=== PATIENT | female | born 1985 | race American Indian/Alaskan Native ===

== ENCOUNTER 2020-04-24 00:36 | Emergency (ER) | payer SELFPAY ==
[2020-04-24] MEDS ORDERED: ASPIRIN 325 MG TAB PO ONE (00:42)
[2020-04-24 01:10] LABS: Basophils # (Auto) 0.1 K/mm3 (0.0-0.1); Basophils % (Auto) 1.3 % (0.0-1.8); Eosinophils # (Auto) 0.1 K/mm3 (0.0-0.4); Eosinophils % (Auto) 0.9 % (0.0-4.3); Hematocrit 32.6 % (30.3-42.9); Hemoglobin 10.3 gm/dl (10.1-14.3); Lymphocytes # (Auto) 2.6 K/mm3 (1.2-5.4); Lymphocytes % (Auto) 36.5 % (13.4-35.0); Mean Corpuscular HGB Conc 32 % (30-34); Mean Corpuscular Volume 72 fl (79-97); Monocytes # (Auto) 0.4 K/mm3 (0.0-0.8); Monocytes % (Auto) 5.1 % (0.0-7.3); Platelet Count 264 K/mm3 (140-440); Red Blood Count 4.54 M/mm3 (3.65-5.03); Red Cell Distribution Width 18.1 % (13.2-15.2)
--- NOTE | 2020-04-24 01:16 | Emergency Department Report ---
ED General Adult HPI - General Chief complaint: Hyperglycemia Stated complaint: ELEVATED BLOOD SUGAR, CHEST PAIN PUI?: No Time Seen by Provider: 04/24/20 01:05 Source: patient Mode of arrival: Ambulatory Limitations: No Limitations - History of Present Illness Initial comments: Patient is a 35-year-old female that presents emergency room with complaints of elevated blood sugar and chest pain. Patient states that she was seen here on April 22 and given metformin. Patient's new diagnosis of diabetes on April 22. Patient states her chest pain started 5 days ago. Patient states she was already evaluated here for chest pain. Patient states the chest pain is the same. Patient states the chest pain is a pressure and is a 4 out of 10. Patient states the chest pain is unchanged by exertion. Patient states the chest pain is worse with movement and palpation. Patient states the chest pain is better with rest and remaining still. Patient denies shortness of breath. Patient states that ever since she started the metformin her increased urination has slowed down. Patient states she had came in because her blood sugar read greater than 500 and it worried her. Patient denies vomiting. Patient that she has occasional nausea. Patient states the nausea started when she started the metformin. Patient denies recent travel. Patient denies recent international travel. Patient denies exposure to the novel coronavirus. Patient denies sick contacts. Patient denies fever and chills. Patient denies cough. Patient denies diarrhea. Patient denies coming in contact with anybody with symptoms of the novel coronavirus. -: Sudden Severity scale (0 -10): 4 Quality: other (Pressure) Consistency: constant Improves with: rest Worsens with: movement Associated Symptoms: chest pain. denies: confusion, cough, diaphoresis, fever/chills, headaches, loss of appetite, malaise, rash, seizure, shortness of breath, syncope, weakness Treatments Prior to Arrival: none - Related Data Home Medications Medication Instructions Recorded Confirmed Last Taken medroxyPROGESTERone ACETATE 150 mg IM ONCE 08/20/13 08/20/13 06/04/13 [Depo-Provera (Contraception)] Previous Rx's Medication Instructions Recorded Last Taken Type Acetaminophen/Codeine [Tylenol #3] 1 tab PO Q6H PRN #10 tab 08/21/13 Unknown Rx Lidocaine Viscous 2% [Xylocaine 20 ml MM Q4H #240 ml 08/21/13 Unknown Rx Viscous 2%] Penicillin Vk [Veetids TAB] 500 mg PO QID #40 tablet 08/21/13 Unknown Rx DOXYCYCLINE Hyclate [Vibramycin 100 mg PO BID #20 capsule 09/29/13 Unknown Rx CAP] Ibuprofen [Motrin] 800 mg PO TID PRN #60 tablet 09/29/13 Unknown Rx metroNIDAZOLE [Flagyl] 500 mg PO BID #20 tablet 09/29/13 Unknown Rx metFORMIN [Glucophage] 500 mg PO BID #60 tab 04/24/20 Unknown Rx Allergies Allergy/AdvReac Type Severity Reaction Status Date / Time No Known Allergies Allergy Verified 08/20/13 23:54 ED Review of Systems ROS: Stated complaint: ELEVATED BLOOD SUGAR, CHEST PAIN Other details as noted in HPI Constitutional: denies: chills, fever Eyes: denies: eye pain, eye discharge, vision change ENT: denies: ear pain, throat pain Respiratory: denies: cough, shortness of breath, wheezing Cardiovascular: chest pain. denies: palpitations Endocrine: no symptoms reported, see HPI, increased urine. denies: increased hunger, increased thirst Gastrointestinal: nausea. denies: abdominal pain, vomiting, diarrhea Genitourinary: denies: urgency, dysuria, discharge Musculoskeletal: denies: back pain, joint swelling, arthralgia Skin: denies: rash, lesions Neurological: denies: headache, weakness, paresthesias Psychiatric: denies: anxiety, depression Hematological/Lymphatic: denies: easy bleeding, easy bruising ED Past Medical Hx - Past Medical History Previous Medical History?: Yes Hx Diabetes: Yes Additional medical history: Gestational diabetes - Surgical History Past Surgical History?: Yes Additional Surgical History: , bilateral breast reduction - Family History Family history: no significant - Social History Smoking Status: Never Smoker Substance Use Type: None - Medications Home Medications: Home Medications Medication Instructions Recorded Confirmed Last Taken Type medroxyPROGESTERone ACETATE 150 mg IM ONCE 08/20/13 08/20/13 06/04/13 History [Depo-Provera (Contraception)] Acetaminophen/Codeine [Tylenol #3] 1 tab PO Q6H PRN #10 tab 08/21/13 Unknown Rx Lidocaine Viscous 2% [Xylocaine 20 ml MM Q4H #240 ml 08/21/13 Unknown Rx Viscous 2%] Penicillin Vk [Veetids TAB] 500 mg PO QID #40 tablet 08/21/13 Unknown Rx DOXYCYCLINE Hyclate [Vibramycin 100 mg PO BID #20 capsule 09/29/13 Unknown Rx CAP] Ibuprofen [Motrin] 800 mg PO TID PRN #60 tablet 09/29/13 Unknown Rx metroNIDAZOLE [Flagyl] 500 mg PO BID #20 tablet 09/29/13 Unknown Rx metFORMIN [Glucophage] 500 mg PO BID #60 tab 04/24/20 Unknown Rx ED Physical Exam - General Limitations: No Limitations General appearance: alert, in no apparent distress - Head Head exam: Present: atraumatic, normocephalic - Eye Eye exam: Present: normal appearance - ENT ENT exam: Present: mucous membranes moist - Neck Neck exam: Present: normal inspection - Respiratory Respiratory exam: Present: normal lung sounds bilaterally, chest wall tenderness (Palpation of the chest wall reproduces symptoms.). Absent: respiratory distress, wheezes, rales - Cardiovascular Cardiovascular Exam: Present: regular rate, normal rhythm. Absent: systolic murmur, diastolic murmur, rubs, gallop - GI/Abdominal GI/Abdominal exam: Present: soft, normal bowel sounds. Absent: distended, tenderness, guarding - Extremities Exam Extremities exam: Present: normal inspection - Back Exam Back exam: Present: normal inspection - Neurological Exam Neurological exam: Present: alert, oriented X3 - Psychiatric Psychiatric exam: Present: normal affect, normal mood - Skin Skin exam: Present: warm, dry, intact, normal color. Absent: rash ED Course Vital Signs 04/24/20 04/24/20 03:07 03:32 Pulse Rate 89 Respiratory 18 17 Rate Blood Pressure 141/100 [Left] O2 Sat by Pulse 99 99 Oximetry - Reevaluation(s) Reevaluation #1: Patient states her pain has resolved. Patient states she is feeling better. I discussed all results and clinical findings with patient. I discussed plan of care with patient. Patient agrees with plan of care. Patient is stable for discharge. Patient will be discharged home. Patient given discharge instructions. Patient voiced understanding of discharge instructions. 04/24/20 03:36 ED Medical Decision Making - Lab Data Result diagrams: 04/24/20 00:56 04/24/20 00:56 - EKG Data -: EKG Interpreted by Me EKG shows normal: sinus rhythm, axis, intervals, QRS complexes, ST-T waves Rate: normal - Radiology Data Radiology results: report reviewed, image reviewed CHEST 1 VIEW INDICATION: Chest Pain. COMPARISON: 04/21/2020 FINDINGS: Support devices: None. Heart: Normal. Lungs/Pleura: No acute pulmonary or pleural findings. IMPRESSION: 1. No acute findings. - Medical Decision Making Patient is a 35-year-old female that presents emergency room with complaints of elevated blood sugar and chest pain and nausea. Patient's chest pain has been going on for 5 days. Patient's cardiac enzymes were negative. Patient's nausea is most likely secondary to a side effect from metformin. Patient's labs are essentially unremarkable. Patient found to have hyperglycemia. Patient given fluids and insulin and her blood glucose dropped to 206. Patient stable for discharge. Patient will be discharged home. Patient chest x-ray negative. Patient EKG negative. I counseled the patient for 20 minutes on diabetes and how to manage diabetes and the importance of managing diabetes. - Differential Diagnosis Hyperglycemia, uncontrolled diabetes, chest pain, nausea Critical care attestation.: If time is entered above; I have spent that time in minutes in the direct care of this critically ill patient, excluding procedure time. ED Disposition Clinical Impression: Hyperglycemia, Diabetes mellitus, new onset Chest pain Qualifiers: Chest pain type: unspecified Qualified Code(s): R07.9 - Chest pain, unspecified Disposition: DC-01 TO HOME OR SELFCARE Is pt being admited?: No Does the pt Need Aspirin: No Condition: Stable Instructions: Chest Pain (ED), How to Check Your Blood Sugar (ED), Diabetes Mellitus Type 2 in Adults (ED), Meal Planning with Diabetes Exchanges (DC), Diabetic Hyperglycemia (ED) Additional Instructions: Patient to follow-up with primary care in 2 to 3 days. Patient eat a diabetic, heart healthy diet. Patient to continue to monitor blood sugar. Patient to rest. Patient to increase water. Patient to avoid strenuous exercise or heavy lifting until cleared by cardiology. Patient to take Tylenol or ibuprofen as needed for pain. Patient take a daily 81 mg aspirin. Patient to take meds as directed. Patient to return to the ER if condition worsens, changes or new symptoms arise. Patient's information faxed over to our local cardiology group for further evaluation and treatment of her chest pain. Prescriptions: metFORMIN [Glucophage] 500 mg PO BID #60 tab Referrals: GERMÁN BAIN MD [Primary Care Provider] - 2-3 Days CHELY BUNDY MD [Staff Physician] - 2-3 Days Time of Disposition: 03:41 HEART Score - HEART Score History: Slightly suspicious EKG: Normal Age: < 45 Risk factors: 1-2 risk factors Troponin: Troponin T < 0.010 ng/mL (0.00-0.029) 04/24/20 00:56 Troponin: < normal limit HEART Score: 1
[2020-04-24 01:32] LABS: BUN/Creatinine Ratio 14; Blood Urea Nitrogen 10 mg/dL (7-17); Hemolysis Index 6
--- NOTE | 2020-04-24 01:47 | XRay Report ---
CHEST 1 VIEW INDICATION: Chest Pain. COMPARISON: 04/21/2020 FINDINGS: Support devices: None. Heart: Normal. Lungs/Pleura: No acute pulmonary or pleural findings. IMPRESSION: 1. No acute findings. Signer Name: Casper Castillo MD Signed: 04/24/2020 1:42 AM Workstation Name: [id number]
[2020-04-24] MEDS ORDERED: INSULIN REGULAR, HUMAN 100 UNITS/1 ML IV ONE (01:57)
[2020-04-24] MEDS ORDERED: SODIUM CHLORIDE 0.9% 1000 ML 1,000 ML IV ONE (01:57)
[2020-04-24 03:08] VITALS: BP 141/100
== END 2020-04-24 04:32 | disposition home or self-care (01) ==
LOC: ED 00:36
DX: E11.65 Type 2 diabetes mellitus with hyperglycemia (principal); R07.9 Chest pain, unspecified; Z79.899 Other long term (current) drug therapy; Z98.890 Other specified postprocedural states
CPT/HCPCS: 36415; 71045; 80048; 82962; 84484; 85025; 93005; 96361; 96374; 99284; J7030; J1815

== ENCOUNTER 2020-08-04 18:53 | Emergency (ER) | payer MEDICAID ==
--- NOTE | 2020-08-04 20:48 | Emergency Department Report ---
ED General Adult HPI - General Chief complaint: Recheck/Abnormal Lab/Rx Stated complaint: DIABETIC MEDS Time Seen by Provider: 08/04/20 20:12 Source: patient Mode of arrival: Ambulatory Limitations: No Limitations - History of Present Illness Initial comments: 35-year-old -[place] female newly diagnosed with diabetes mellitus a few months ago presents emergency department seeking a medication refill stating she has of her medications over the last month. She reports no fever, chills, sweats no polyuria no polydipsia Radiation: non-radiation Consistency: constant Improves with: none Worsens with: none Associated Symptoms: denies other symptoms Treatments Prior to Arrival: none - Related Data Home Medications Medication Instructions Recorded Confirmed Last Taken medroxyPROGESTERone ACETATE 150 mg IM ONCE 08/20/13 08/20/13 06/04/13 [Depo-Provera (Contraception)] Previous Rx's Medication Instructions Recorded Last Taken Type Acetaminophen/Codeine [Tylenol #3] 1 tab PO Q6H PRN #10 tab 08/21/13 Unknown Rx Lidocaine Viscous 2% [Xylocaine 20 ml MM Q4H #240 ml 08/21/13 Unknown Rx Viscous 2%] Penicillin Vk [Veetids TAB] 500 mg PO QID #40 tablet 08/21/13 Unknown Rx DOXYCYCLINE Hyclate [Vibramycin 100 mg PO BID #20 capsule 09/29/13 Unknown Rx CAP] Ibuprofen [Motrin] 800 mg PO TID PRN #60 tablet 09/29/13 Unknown Rx metroNIDAZOLE [Flagyl] 500 mg PO BID #20 tablet 09/29/13 Unknown Rx metFORMIN [Glucophage] 500 mg PO BID #60 tab 04/24/20 Unknown Rx metFORMIN [Glucophage] 500 mg PO BID #60 tablet 08/04/20 Unknown Rx Allergies Allergy/AdvReac Type Severity Reaction Status Date / Time No Known Allergies Allergy Verified 08/04/20 19:31 ED Review of Systems ROS: Stated complaint: DIABETIC MEDS Other details as noted in HPI Comment: All other systems reviewed and negative ED Past Medical Hx - Past Medical History Hx Diabetes: Yes Additional medical history: Gestational diabetes - Surgical History Additional Surgical History: , bilateral breast reduction - Social History Smoking Status: Never Smoker Substance Use Type: None - Medications Home Medications: Home Medications Medication Instructions Recorded Confirmed Last Taken Type medroxyPROGESTERone ACETATE 150 mg IM ONCE 08/20/13 08/20/13 06/04/13 History [Depo-Provera (Contraception)] Acetaminophen/Codeine [Tylenol #3] 1 tab PO Q6H PRN #10 tab 08/21/13 Unknown Rx Lidocaine Viscous 2% [Xylocaine 20 ml MM Q4H #240 ml 08/21/13 Unknown Rx Viscous 2%] Penicillin Vk [Veetids TAB] 500 mg PO QID #40 tablet 08/21/13 Unknown Rx DOXYCYCLINE Hyclate [Vibramycin 100 mg PO BID #20 capsule 09/29/13 Unknown Rx CAP] Ibuprofen [Motrin] 800 mg PO TID PRN #60 tablet 09/29/13 Unknown Rx metroNIDAZOLE [Flagyl] 500 mg PO BID #20 tablet 09/29/13 Unknown Rx metFORMIN [Glucophage] 500 mg PO BID #60 tab 04/24/20 Unknown Rx metFORMIN [Glucophage] 500 mg PO BID #60 tablet 08/04/20 Unknown Rx ED Physical Exam - General Limitations: No Limitations General appearance: alert, in no apparent distress - Head Head exam: Present: atraumatic, normocephalic - Eye Eye exam: Present: normal appearance - ENT ENT exam: Present: mucous membranes moist - Neck Neck exam: Present: normal inspection - Respiratory Respiratory exam: Present: normal lung sounds bilaterally. Absent: respiratory distress - Cardiovascular Cardiovascular Exam: Present: regular rate, normal rhythm. Absent: systolic murmur, diastolic murmur, rubs, gallop - GI/Abdominal GI/Abdominal exam: Present: soft, normal bowel sounds - Extremities Exam Extremities exam: Present: normal inspection - Back Exam Back exam: Present: normal inspection - Neurological Exam Neurological exam: Present: alert, oriented X3 - Psychiatric Psychiatric exam: Present: normal affect, normal mood - Skin Skin exam: Present: warm, dry, intact, normal color. Absent: rash ED Course Vital Signs 08/04/20 19:33 Temperature 98.9 F Pulse Rate 102 H Respiratory 18 Rate Blood Pressure 119/88 O2 Sat by Pulse 100 Oximetry ED Medical Decision Making - Medical Decision Making No significant symptomology 6 medication refill Critical care attestation.: If time is entered above; I have spent that time in minutes in the direct care of this critically ill patient, excluding procedure time. ED Disposition Clinical Impression: Diabetes, Medication refill Disposition: - TO HOME OR SELFCARE Is pt being admited?: No Does the pt Need Aspirin: No Condition: Stable Instructions: Diabetes Mellitus Type 2 in Adults (ED) Prescriptions: metFORMIN [Glucophage] 500 mg PO BID #60 tablet Referrals: [facility] [Provider Group] - 3-5 Days
[2020-08-05 00:03] VITALS: BP 120/77
== END 2020-08-04 21:00 | disposition home or self-care (01) ==
LOC: ED 18:53
DX: E11.9 Type 2 diabetes mellitus without complications (principal); Z79.899 Other long term (current) drug therapy; Z98.890 Other specified postprocedural states; Z76.0 Encounter for issue of repeat prescription
CPT/HCPCS: 99282

== ENCOUNTER 2020-08-11 08:20 | Emergency (ER) | payer OTHER, MEDICAID ==
[2020-08-11] MEDS ORDERED: KETOROLAC 10 MG TAB PO ONE (10:46)
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
[2020-08-11 11:38] VITALS: BP 130/97
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
--- NOTE | 2020-08-11 12:31 | Cat Scan Report ---
CT cervical spine wo con INDICATION: pain after head injury. TECHNIQUE: Axial CT images of the cervical spine were obtained. Sagittal and coronal reformatted images were pro duced. All CT scans at this location are performed using CT dose reduction for ALARA by means of auto mated exposure control. COMPARISON: None available. FINDINGS: ALIGNMENT: Normal alignment. VERTEBRAE: No fracture. Vertebral body heights are preserved. C1 and C2 are congruent. SPONDYLOSIS: No significant spondylosis. SOFT TISSUES: No significant soft tissue abnormality. ADDITIONAL FINDINGS: Thyroid gland is mildly enlarged. No suspicious nodule. IMPRESSION: 1. No fracture of the cervical spine. . Signer Name: Eliu Cordova MD Signed: 08/11/2020 12:26 PM Workstation Name: [id number]
== END 2020-08-11 12:52 | disposition home or self-care (01) ==
LOC: ED 08:20
DX: S16.1XXA Strain of muscle, fascia and tendon at neck level, initial encounter (principal); S09.90XA Unspecified injury of head, initial encounter; E11.9 Type 2 diabetes mellitus without complications; F17.200 Nicotine dependence, unspecified, uncomplicated; Z79.899 Other long term (current) drug therapy; V49.49XA Driver injured in collision with other motor vehicles in traffic accident, initial encounter; Y93.89 Activity, other specified; Y92.488 Other paved roadways as the place of occurrence of the external cause; Y99.8 Other external cause status
CPT/HCPCS: 70450; 72125; 99283